=== PATIENT | male | born 1960 | race Caucasian/White ===

== ENCOUNTER 2018-10-30 07:24 | Day surgery (SDC) | payer BC ==
[2018-10-30] MEDS ORDERED: LIDOCAINE HCL 1% MPF 30 SOL ONE (07:52)
[2018-10-30] MEDS ORDERED: BUPIVACAINE HCL 0.5% MPF 10 ML SOL ONE (07:52)
[2018-10-30 08:29] VITALS: BP 128/84; PULSE 64; RESP 18; TEMP 97.7; O2SAT 98
== END 2018-10-30 08:51 | disposition home or self-care (01) ==
LOC: SURG 07:24
PROVIDERS: ATTEND Nurse Anesthetist, Certified Registered
DX: M25.562 Pain in left knee (principal)
CPT/HCPCS: 76000; J2001